=== PATIENT | male | born 1945 | race Caucasian/White ===

== ENCOUNTER 2016-12-29 18:01 | Inpatient (IN) | payer OTHER ==
[2016-12-29] MEDS ORDERED: NS 1,000 ML IV ONE ×2 (18:21→20:17)
[2016-12-29] MEDS ORDERED: ONDANSETRON 4 MG/2 ML VIAL IVP ONE (18:23)
--- NOTE | 2016-12-29 18:26 | EDPHY ---
H & P Stated Complaint: Stomach pain since Friday with nausea and vomiting. Source: Patient, Family Exam Limitations: No limitations - Personal History Current Tetanus Diphtheria and Acellular Pertussis (TDAP): Yes - Medical/Surgical History Hx Asthma: No Hx Chronic Respiratory Disease: No Hx Diabetes: No Hx Cardiac Disease: No Hx Renal Disease: No Hx Cirrhosis: No Hx Alcoholism: No Hx HIV/AIDS: No Hx Splenectomy or Spleen Trauma: No Other PMH: 2 x hernia surgeries May 2016. Enlarged prostate - Social History Smoking Status: Never smoked Time Seen by Provider: 12/29/16 18:13 HPI/ROS: CHIEF COMPLAINT: Abdominal pain, nausea HISTORY OF PRESENT ILLNESS: Patient complains of abdominal pain and nausea. Initially started on Friday night. It is located primarily in left lower quadrant but also in the left upper quadrant. [id number] pain worse with Valsalva and palpation. Some improvement rest. No fever. Some constipation. No diarrhea. No bloody stools. No emesis. No trauma or injury. Took some Pepto-Bismol last night which temporarily alleviate his symptoms until 2:00 p.m. today. They returned and have been constant. No other associated complaints or modifying factors. REVIEW OF SYSTEMS: Ten systems reviewed and are negative unless otherwise noted in the HPI PAST MEDICAL HISTORY: BPH, cataracts, left inguinal hernia status post surgical repair most recently in May [address] Michael. SOCIAL HISTORY: Nonsmoker. 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 Lives just [place] of [facility] FAMILY HISTORY: Noncontributory EXAMINATION General Appearance: Alert, no distress Head: normocephalic, atraumatic Eyes: Pupils equal and round, no conjunctival pallor or injection ENT, Mouth: Mucous membranes moist Neck: Normal inspection, supple, non-tender Respiratory: Lungs are clear to auscultation Cardiovascular: Regular rate and rhythm. No murmur Gastrointestinal: Bowel sounds are symmetric in all 4 quadrants but diminished. Abdomen is soft and nondistended. There is tenderness in the left upper quadrant left lower quadrant. Minimal guarding on the left. No CVA tenderness. Minimal tympany. No rigidity. Skin: Warm and dry, no rash. No petechiae or purpura Extremities: Nontender, no pedal edema Psychiatric: Mood and affect normal DIFFERENTIAL DIAGNOSES: Including but not limited to colitis, diverticulitis, enteritis, gastritis, pancreatitis, cystitis, ureteral stone, renal lithiasis, renal colic MDM: 6:20 p.m. Left-sided abdominal pain that has been present since Friday with minimal improvement overnight. Examination suggest colitis versus diverticulitis. Vital signs are stable. I have ordered a CT scan of the abdomen pelvis given the level of pain and mild guarding as. He is in no acute distress. 6:45 p.m. Laboratory studies reveal mild abnormalities in the chemistry. There is also a leukocytosis of 17. CT scan is currently being obtained. 7:[address] scan as read myself and Dr. Fan reveals evidence of a small-bowel obstruction. This is pending the official interpretation radiology. 7:[address] Fan has discussed the case with the radiologist and Dr. Ochoa, as he is established with Dr. Michael. There is a small bowel obstruction to the mid ileum. Dr. Ochoa has requested admission and NG tube placement. This has been explained to the patient he is agreeable with the plan. He is in no acute distress. He has been admitted in stable condition. SUPERVISION: Patient was evaluated in conjunction with the supervising physician. Please see their note for details. (Felipe Curry) Constitutional: Initial Vital Signs Temperature (C) 98.1 F 12/29/16 18:02 Heart Rate 75 12/29/16 18:02 Respiratory Rate 18 12/29/16 18:02 Blood Pressure 163/101 H 12/29/16 18:02 O2 Sat (%) 96 12/29/16 18:02 O2 Delivery Mode Room Air Allergies/Adverse Reactions: No Known Allergies Allergy (Unverified 02/19/11 06:58) Medical Decision Making - Diagnostics EKG Interpretation: 12-lead EKG interpreted by me; official reading is in trace master. My interpretation is sinus rhythm rate 61 no ischemic changes. (Kelvin Fan) Other Provider: PHYSICIAN DOCUMENTATION: The patient was evaluated and managed by the Physician Leather Softener and myself. I have reviewed the chart and agree with the findings and plan of care as documented. In addition, I examined the patient myself at 1820. History confirmed as left-sided abdominal pain without fall injury or trauma. Physical findings as follows: Left-sided tenderness with guarding. Plan for symptomatic treatment, i-STAT and CT scanning if normal creatinine. 1935: CT reported by Dr. Adriel Mistry as bowel obstruction with transition in the mid ilium, discussed with the patient. Plan to admit to his surgical practice doctor Alec. Discussed with Don at 1946, admit and NGT. I am the secondary supervising physician. (Kelvin Fan) - Data Points Laboratory Results: Laboratory Results 12/29/16 18:15 12/29/16 18:15 12/29/16 12/29/16 12/29/16 19:35 18:25 18:15 WBC RBC Hgb POC Hgb 17.0 gm/dL gm/dL (13.7-17.5) Hct POC Hct 50 % % (40-51) MCV MCH MCHC RDW Plt Count MPV Neut % (Auto) Lymph % (Auto) [place] % (Auto) Eos % (Auto) Baso % (Auto) Nucleat RBC Rel Count Absolute Neuts (auto) Absolute Lymphs (auto) Absolute Monos (auto) Absolute Eos (auto) Absolute Basos (auto) Absolute Nucleated RBC Immature Gran % Immature Gran # PT INR APTT POC Sodium 138 mEq/L mEq/L (134-144) Sodium 136 mEq/L mEq/L (134-144) POC Potassium 3.7 mEq/L mEq/L (3.3-5.0) Potassium 4.1 mEq/L mEq/L (3.5-5.2) POC Chloride 104 mEq/L mEq/L (97-110) Chloride 100 mEq/L mEq/L (97-110) Carbon Dioxide 19 mEq/l L mEq/l (22-31) Anion Gap 17 mEq/L H mEq/L (8-16) POC BUN 35 mg/dL H mg/dL (7-23) BUN 40 mg/dL H mg/dL (7-23) Creatinine 1.4 mg/dL H mg/dL (0.7-1.3) POC Creatinine 1.5 mg/dL H mg/dL (0.7-1.3) Estimated GFR 50 Glucose 105 mg/dL H mg/dL (70-100) POC Glucose 109 mg/dL H mg/dL (70-100) Calcium 10.5 mg/dL H mg/dL (8.5-10.4) Total Bilirubin 2.0 mg/dL H mg/dL (0.1-1.4) Conjugated Bilirubin 0.4 mg/dL mg/dL (0.0-0.5) Unconjugated Bilirubin 1.6 mg/dL H mg/dL (0.0-1.1) AST 26 IU/L IU/L (17-59) ALT 25 IU/L IU/L (21-72) Alkaline Phosphatase 49 IU/L IU/L (38-126) Troponin I < 0.012 ng/mL ng/mL (0-0.034) Total Protein 8.3 g/dL H g/dL (6.3-8.2) Albumin 5.0 g/dL g/dL (3.5-5.0) Lipase 72.0 IU/L IU/L (23-300) Urine Color YELLOW Urine Appearance CLEAR Urine pH 7.0 (5.0-7.5) Ur Specific [place] > 1.035 H (1.002-1.030) Urine Protein NEGATIVE (NEGATIVE) Urine Ketones 1+ H (NEGATIVE) Urine Blood NEGATIVE (NEGATIVE) Urine Nitrate NEGATIVE (NEGATIVE) Urine Bilirubin NEGATIVE (NEGATIVE) Urine Urobilinogen NEGATIVE EU EU (0.2-1.0) Ur Leukocyte Esterase NEGATIVE (NEGATIVE) Urine RBC 1-3 /hpf /hpf (0-3) Urine WBC 1-3 /hpf /hpf (0-3) Ur Epithelial Cells TRACE /lpf /lpf (NONE-1+) Urine Mucus TRACE /lpf /lpf (NONE-1+) Urine Glucose NEGATIVE (NEGATIVE) 12/29/16 12/29/16 18:15 18:15 WBC 17.08 10^3/uL H 10^3/uL (3.80-9.50) RBC 5.68 10^6/uL 10^6/uL (4.40-6.38) Hgb 18.0 g/dL H g/dL (13.7-17.5) POC Hgb Hct 50.8 % % (40.0-51.0) POC Hct MCV 89.4 fL fL (81.5-99.8) MCH 31.7 pg pg (27.9-34.1) MCHC 35.4 g/dL g/dL (32.4-36.7) RDW 12.8 % % (11.5-15.2) Plt Count 353 10^3/uL 10^3/uL (150-400) MPV 9.4 fL fL (8.7-11.7) Neut % (Auto) 80.2 % H % (39.3-74.2) Lymph % (Auto) 10.3 % L % (15.0-45.0) [place] % (Auto) 8.5 % % (4.5-13.0) Eos % (Auto) 0.2 % L % (0.6-7.6) Baso % (Auto) 0.4 % % (0.3-1.7) Nucleat RBC Rel Count 0.0 % % (0.0-0.2) Absolute Neuts (auto) 13.71 10^3/uL H 10^3/uL (1.70-6.50) Absolute Lymphs (auto) 1.76 10^3/uL 10^3/uL (1.00-3.00) Absolute Monos (auto) 1.45 10^3/uL H 10^3/uL (0.30-0.80) Absolute Eos (auto) 0.04 10^3/uL 10^3/uL (0.03-0.40) Absolute Basos (auto) 0.06 10^3/uL 10^3/uL (0.02-0.10) Absolute Nucleated RBC 0.00 10^3/uL 10^3/uL (0-0.01) Immature Gran % 0.4 % % (0.0-1.1) Immature Gran # 0.06 10^3/uL 10^3/uL (0.00-0.10) PT 12.9 SEC SEC (12.0-15.0) INR 0.98 (0.83-1.16) APTT 25.5 SEC SEC (23.0-38.0) POC Sodium Sodium POC Potassium Potassium POC Chloride Chloride Carbon Dioxide Anion Gap POC BUN BUN Creatinine POC Creatinine Estimated GFR Glucose POC Glucose Calcium Total Bilirubin Conjugated Bilirubin Unconjugated Bilirubin AST ALT Alkaline Phosphatase Troponin I Total Protein Albumin Lipase Urine Color Urine Appearance Urine pH Ur Specific [place] Urine Protein Urine Ketones Urine Blood Urine Nitrate Urine Bilirubin Urine Urobilinogen Ur Leukocyte Esterase Urine RBC Urine WBC Ur Epithelial Cells Urine Mucus Urine Glucose Medications Given: Discontinued Medications Sodium Chloride (Ns) 1,000 mls @ 0 mls/hr IV EDNOW ONE; Wide Open PRN Reason: Protocol Stop: 12/29/16 18:22 Last Admin: 12/29/16 18:30 Dose: 1,000 mls Sodium Chloride (Ns) 500 mls @ 1,000 mls/hr IV EDNOW ONE PRN Reason: Protocol Stop: 12/29/16 19:41 Last Admin: 12/29/16 19:52 Dose: 500 mls Morphine Sulfate (Morphine) 4 mg IVP EDNOW ONE Stop: 12/29/16 18:24 Last Admin: 12/29/16 18:30 Dose: 4 mg Ondansetron HCl (Zofran) 4 mg IVP EDNOW ONE Stop: 12/29/16 18:24 Last Admin: 12/29/16 18:30 Dose: 4 mg Point of Care Test Results: 12/29/16 18:25 POC Sodium 138 POC Potassium 3.7 POC Chloride 104 POC BUN 35 H POC Creatinine 1.5 H POC Glucose 109 H Departure - Departure Disposition: [facility] Inpatient Acute Clinical Impression: Small bowel obstruction Condition: Good Referrals: NONE *PRIMARY CARE P,. [Primary Care Provider] - As per Instructions
[2016-12-29 18:27] LABS: % IMMATURE GRANULYOCYTES 0.4 % (0.0-1.1); ABSOLUTE IMMATURE GRANULOCYTES 0.06 10^3/uL (0.00-0.10); ADD DIFF? NO; ADD MORPH? NO; ADD SCAN? NO; ATYPICAL LYMPHOCYTE FLAG 0 (0-99); FRAGMENT RBC FLAG 0 (0-99); HEMATOCRIT 50.8 % (40.0-51.0); LEFT SHIFT FLG 0 (0-99); LIPEMIA HEMOLYSIS FLAG 90 (0-99); MEAN CELL HEMOGLOBIN 31.7 pg (27.9-34.1); MEAN CELL HEMOGLOBIN CONCENTR. 35.4 g/dL (32.4-36.7); MEAN CELL VOLUME 89.4 fL (81.5-99.8); MEAN PLATELET VOLUME 9.4 fL (8.7-11.7); PLATELET CLUMPS FLAG 0 (0-99); PLATELET COUNT 353 10^3/uL (150-400); RED BLOOD CELL COUNT 5.68 10^6/uL (4.40-6.38); RED CELL DISTRIBUTION WIDTH 12.8 % (11.5-15.2)
--- NOTE | 2016-12-29 18:29 | CPEKG ---
Heart Rate: 61 RR Interval: 984 P-R Interval: 176 QRSD Interval: 98 QT Interval: 420 QTC Interval: 423 P Coello: 32 QRS Coello: 29 T Wave Coello: 41 EKG Severity - NORMAL ECG - EKG Impression: SINUS RHYTHM Electronically Signed By: Kelvin Fan 29-Dec-2016 18:29:11
[2016-12-29 18:33] LABS: ALKALINE PHOSPHATASE 49 IU/L (38-126); ANION GAP 17 mEq/L (8-16); ASPARTATE AMINOTRANSFERASE 26 IU/L (17-59); BILIRUBIN-UNCONJUGATED 1.6 mg/dL (0.0-1.1); CALCIUM 10.5 mg/dL (8.5-10.4); CARBON DIOXIDE 19 mEq/l (22-31); CHLORIDE 100 mEq/L (97-110); CREATININE 1.4 mg/dL (0.7-1.3); GLOMERULAR FILTRATION RATE 50; GLUCOSE 105 mg/dL (70-100); POTASSIUM 4.1 mEq/L (3.5-5.2); SODIUM 136 mEq/L (134-144); TOTAL PROTEIN 8.3 g/dL (6.3-8.2)
[2016-12-29 18:34] LABS: ALANINE AMINOTRANSFERASE 25 IU/L (21-72); BILIRUBIN-CONJUGATED 0.4 mg/dL (0.0-0.5)
[2016-12-29] MEDS ORDERED: IOPAMIDOL (ISOVUE-300) 100 ML BTL ONE (18:37)
[2016-12-29 18:43] LABS: APTT 25.5 SEC (23.0-38.0); INR 0.98 (0.83-1.16); PROTIME(PATIENT) 12.9 SEC (12.0-15.0)
[2016-12-29 18:44] LABS: TROPONIN I < 0.012 ng/mL (0-0.034)
[2016-12-29] MEDS ORDERED: NS 500 ML IV ONE (19:12)
[2016-12-29 19:40] LABS: COLOR YELLOW; LEUKOCYTE ESTERASE,URINE NEGATIVE (NEGATIVE); NITRITE,URINE NEGATIVE (NEGATIVE)
[2016-12-29 19:45] LABS: MUCUS TRACE /lpf (NONE-1+)
[2016-12-29] MEDS ORDERED: BENZOCAINE UNIT DOSE SPRAY HURRICAINE MM ONE ×2 (20:04→20:05)
[2016-12-29] MEDS ORDERED: ONDANSETRON 4 MG/2 ML VIAL IVP PRN (20:48)
[2016-12-29] MEDS ORDERED: LORazepam 2 MG/ML INJ IVP PRN (20:49)
--- NOTE | 2016-12-29 21:21 | GHP ---
[f rep st] PREOP HISTORY AND PHYSICAL DATE OF ADMISSION: 12/29/2016 REASON FOR ADMISSION: Small bowel obstruction. REQUESTING PHYSICIAN: Kelvin Fan MD. HISTORY OF PRESENT ILLNESS: 71-year-old male with a significant surgical history for a laparoscopic extraperitoneal hernia repair in May of 2016, as well as a remote open inguinal hernia repair. In 2008, he presented to the emergency room today with a 3-day history of abdominal pain, distention, nausea. Symptoms started abruptly on Friday. No antecedent history of abdominal complaints. Bowel movements have been regular. He denied any voiding concerns. He reports that his pain persisted throughout the day and he described 2 bowel movements early Friday morning. He denies any since. He has not been passing flatus in the interim time. No fevers or chills. No prior colonoscopy. Describes an up to date possible flexible sigmoidoscopy. PAST MEDICAL HISTORY: BPH. PAST SURGICAL HISTORY: Left inguinal hernia repair, laparoscopic bilateral inguinal hernia repair. MEDICATIONS: Rapaflo. ALLERGIES: No known drug allergies. SOCIAL HISTORY: No alcohol. No tobacco. He is . He is a self-employed realtor. FAMILY HISTORY: Noncontributory. REVIEW OF SYSTEMS: Negative 12 point review of symptoms other than above acute GI complaints. PHYSICAL EXAMINATION: VITAL SIGNS: Temperature 36.7, blood pressure 160/100, heart rate 75, respirations 18. GENERAL: Patient is alert, appropriate, comfortable. Anicteric. No cervical or supraclavicular lymphadenopathy. HEART : Regular. LUNGS: Clear. ABDOMEN: Distended, soft. No focal tenderness. Well-healed laparoscopic incisions without ventral or inguinal hernias. EXTREMITIES: Unremarkable without edema. NEUROLOGIC: Alert and appropriate. SKIN: Normal turgor. LABORATORY DATA: White count 17, hemoglobin 17, platelets of 350. INR 1. Electrolytes within reference range. BUN 35, creatinine 1.5, glucose 110. CT images directly reviewed on [place] with the patient and , notable dilated proximal small bowel with a mid abdominal transition zone. No free fluid. No bowel wall thickening. No free air. IMPRESSION: 1. Small bowel obstruction, query internal hernia versus possible adhesions relation to recent hernia repair. 2. Acute renal insufficiency. 3. Benign prostatic hypertrophy. PLAN: 1. Nasogastric tube has been placed in the emergency room. Continue short- term trial of the nasogastric decompression. If no resolution within 48 to 72 hours or clinical deterioration in time, consideration for laparoscopic exploration will be undertaken. 2. Aggressive fluid rehydration regarding elevated creatinine. 3. Will continue Rapaflo. /[id number]/MODL MTDD
[2016-12-29] MEDS: D5W 1/2 NS W/ 20 KCl/L 1,000 ML IV SCH (21:30)
[2016-12-29] MEDS: HYDROmorphONE/DILAUDID 2 MG/ML INJ IVP PRN (21:30)
[2016-12-29 22:49] LABS: ANION GAP 10 mEq/L (8-16); CALCIUM 8.6 mg/dL (8.5-10.4); CARBON DIOXIDE 22 mEq/l (22-31); CHLORIDE 103 mEq/L (97-110); CREATININE 1.2 mg/dL (0.7-1.3); GLOMERULAR FILTRATION RATE 60; GLUCOSE 122 mg/dL (70-100); POTASSIUM 4.1 mEq/L (3.5-5.2); SODIUM 135 mEq/L (134-144)
[2016-12-30] MEDS: HYDROmorphONE/DILAUDID 2 MG/ML INJ IVP PRN ×3 (01:09→06:41)
[2016-12-30] MEDS: D5W 1/2 NS W/ 20 KCl/L 1,000 ML IV SCH ×4 (02:39→23:08)
[2016-12-30] MEDS ORDERED: KETOROLAC 30 MG/1 ML SDV IVP PRN (07:56)
--- NOTE | 2016-12-30 07:56 | SOAPPROG ---
SOAP Progress Note Assessment/Plan: Assessment:no new overnight issues. no bm or flatus. crampy pain persists with NG. afebrile. more comfortable. abd dist, soft, min tender. no rebound or guarding. NG gastric. Cr 1.2. PSBO ?int hernia vs adhesions. Cont trial NG suction for now. OR if no improvement in the next 1-2 days. ARF - prerenal - improved with IVF. Images reviewed with patient at bedside (persistent SBO). Plan: 12/30/16 07:53 Objective: Vital Signs Temp Pulse Resp BP Pulse Ox 36.5 C 60 16 154/84 H 91 L 12/30/16 03:38 12/30/16 03:38 12/30/16 03:38 12/30/16 03:38 12/30/16 03:38 Laboratory Results 12/29/16 22:30 12/29/16 12/30/16 12/31/16 05:59 05:59 05:59 Intake Total 2700 Output Total 600 Balance 2100 PT 12.9 SEC (12.0-15.0) 12/29/16 18:15 INR 0.98 (0.83-1.16) 12/29/16 18:15 ICD10 Worksheet Patient Problems: Problems Problem Status Onset Small bowel obstruction Acute
[2016-12-31] MEDS: D5W 1/2 NS W/ 20 KCl/L 1,000 ML IV SCH ×3 (05:31→22:07)
--- NOTE | 2016-12-31 08:22 | SOAPPROG ---
SOAP Progress Note Assessment/Plan: Assessment: less pain since yesterday. one large bm early today. no flatus. avss. comfortable. abd less distended. NG brown/gastric only. PSBO - kub improved but still signif SB dilation - will obtain GG SBFT - if persistent obstruction, will consider lap later today vs tomorrow. discussed with patient and at bedside. no new overnight issues. no bm or flatus. crampy pain persists with NG. afebrile. more comfortable. abd dist, soft, min tender. no rebound or guarding. NG gastric. Cr 1.2. PSBO ?int hernia vs adhesions. Cont trial NG suction for now. OR if no improvement in the next 1-2 days. ARF - prerenal - improved with IVF. Images reviewed with patient at bedside (persistent SBO). Plan: 12/30/16 07:53 12/31/16 08:21 Objective: Vital Signs Temp Pulse Resp BP Pulse Ox 36.5 C 63 18 149/85 H 91 L 12/31/16 08:00 12/31/16 08:00 12/31/16 08:00 12/31/16 08:00 12/31/16 08:00 Laboratory Results 12/29/16 22:30 12/30/16 12/31/16 01/01/17 05:59 05:59 05:59 Intake Total 2700 2540 Output Total 600 4735 150 Balance 2100 -2435 -150 PT 12.9 SEC (12.0-15.0) 12/29/16 18:15 INR 0.98 (0.83-1.16) 12/29/16 18:15 ICD10 Worksheet Patient Problems: Problems Problem Status Onset Small bowel obstruction Acute
[2017-01-01] MEDS: D5W 1/2 NS W/ 20 KCl/L 1,000 ML IV SCH ×2 (03:34→08:56)
--- NOTE | 2017-01-01 09:40 | SOAPPROG ---
SOAP Progress Note Assessment/Plan: Assessment: no complaints. mult bm. no cramps - hungry. avss. comfortable. abd soft, nontender. kub - slight persistence sb - no af levels. large contrast in colon. psbo - improved. ng out. adv diet. anticipate dc later today. f/u 1-2 weeks. aware of indications for possible future exploration if needed as well as recurrence. less pain since yesterday. one large bm early today. no flatus. avss. comfortable. abd less distended. NG brown/gastric only. PSBO - kub improved but still signif SB dilation - will obtain GG SBFT - if persistent obstruction, will consider lap later today vs tomorrow. discussed with patient and at bedside. no new overnight issues. no bm or flatus. crampy pain persists with NG. afebrile. more comfortable. abd dist, soft, min tender. no rebound or guarding. NG gastric. Cr 1.2. PSBO ?int hernia vs adhesions. Cont trial NG suction for now. OR if no improvement in the next 1-2 days. ARF - prerenal - improved with IVF. Images reviewed with patient at bedside (persistent SBO). Plan: 12/30/16 07:53 12/31/16 08:21 01/01/17 09:38 Objective: Vital Signs Temp Pulse Resp BP Pulse Ox 36.4 C 63 20 160/82 H 93 01/01/17 07:40 01/01/17 07:40 01/01/17 07:40 01/01/17 07:40 01/01/17 07:40 Laboratory Results 12/29/16 22:30 12/31/16 01/01/17 01/02/17 05:59 05:59 05:59 Intake Total 2540 Output Total 2476 2230 Balance -2435 -2230 PT 12.9 SEC (12.0-15.0) 12/29/16 18:15 INR 0.98 (0.83-1.16) 12/29/16 18:15 ICD10 Worksheet Patient Problems: Problems Problem Status Onset Small bowel obstruction Acute
--- NOTE | 2017-01-01 10:05 | GDS ---
[f rep st] DISCHARGE SUMMARY REASON FOR ADMISSION: Small bowel obstruction. HOSPITAL COURSE: 71-year-old male with an antecedent history of a prior extraperitoneal laparoscopic inguinal hernia repair, who presents with a first time small bowel obstruction. CT imaging was initially performed showing no evidence of mass, lesion. He was presumed to have an internal hernia or possible adhesive etiology of obstruction less likely, thought to be neoplastic. He did respond well to nasogastric decompression. A small bowel follow-through showed rapid transit of contrast to his colon, within 3 hours prior to discharge, despite mild small bowel persistence. The following day, he was without associated cramping or nausea. He was discharged to home in markedly improved condition. DISCHARGE INSTRUCTIONS: He will follow up in the office with Dr. Ochoa or Alec in the next 1-2 weeks. Additional imaging studies will be obtained at that time. The patient is aware that should symptoms persist or recur/worsen, laparoscopic exploration may be warranted, he is to resume all pre-hospital medications. No activity restrictions were offered, no diet restrictions were offered. /[id number]/MODL MTDD
[2017-01-01 11:33] VITALS: BP 144/78; PULSE 60; RESP 18; TEMP 98.2; O2SAT 94
== END 2017-01-01 15:28 | disposition home or self-care (01) | DRG 389 ==
LOC: F3E 20:56
PROVIDERS: ADMIT Surgery; ATTEND Surgery
PROC: 0DH673Z Insertion of Infusion Device into Stomach, Via Natural or Artificial Opening (ICD-10-PCS; principal; 2016-12-29)
DX: K56.60 Unspecified intestinal obstruction (principal); N17.9 Acute kidney failure, unspecified; N40.0 Benign prostatic hyperplasia without lower urinary tract symptoms
CPT/HCPCS: 82947-QW; 96374; J1170; J2405; Q9967

== ENCOUNTER → 2017-01-08 | Outpatient (CLI) | payer OTHER | LOC: FIMAGING 16:43 | PROVIDERS: ATTEND Surgery | DX: Z09 Encounter for follow-up examination after completed treatment for conditions other than malignant neoplasm (principal); K56.69 Other intestinal obstruction ==